=== PATIENT | female | born 1955 | race Caucasian/White ===

== ENCOUNTER → 2018-12-01 | Outpatient (REF) | payer MEDICARE, MEDICAID | LOC: M LAB LCGH 11:41 | PROVIDERS: ATTEND Obstetrics & Gynecology | DX: Z85.42 Personal history of malignant neoplasm of other parts of uterus (principal) ==

== ENCOUNTER → 2019-06-23 | Outpatient (REF) | LOC: M LAB LCGH 11:50 | PROVIDERS: ATTEND Surgery | DX: M86.171 Other acute osteomyelitis, right ankle and foot (principal) ==

== ENCOUNTER 2021-12-02 14:54 | Emergency (ER) | payer MEDICARE, MEDICAID ==
[~2021-12-02] VITALS: Ht 172.7 cm; Wt 112.3 kg
[2021-12-02 17:15] VITALS: BP 119/65
== END 2021-12-02 17:24 | disposition home or self-care (01) ==
LOC: EDBD 14:54 → M ED 14:54
DX: F43.20 Adjustment disorder, unspecified (principal); E11.9 Type 2 diabetes mellitus without complications; I10 Essential (primary) hypertension; F33.9 Major depressive disorder, recurrent, unspecified; F41.9 Anxiety disorder, unspecified; G47.33 Obstructive sleep apnea (adult) (pediatric); Z85.3 Personal history of malignant neoplasm of breast; Z92.21 Personal history of antineoplastic chemotherapy; Z92.3 Personal history of irradiation

== ENCOUNTER 2022-12-19 10:21 | Day surgery (SDC) | payer MEDICARE, MEDICAID ==
[~2022-12-19] VITALS: Ht 172.7 cm; Wt 89.8 kg
[~2022-12-19 10:21] MED LIST: ACETYLCHOLINE OPHTH SOLN 1% 2ML (MIOCHOL-E) As Ordered ONE; ARIP1TAB4 PO; BSS IRRIG/VANCO(10MG)/TOBRA(5MG)/EPINEPH(1:1000-0.5CC)500ML BAG-ORONLY IR ONE; BUPR-71 PO; CALC-190 PO; CEFUROXIME 1MG/0.1ML INTRACAMERAL INJ As Ordered ONE; CYCLOPENTOLATE 1% OPHTH SOLN 2ML BTL OD SCH; DONE1TAB64 PO; FERR325T81 PO; FIBE625T PO; HYDR12CA PO; INSUHUMDS SC; LIDOCAINE 1% SDV 5ML VIAL As Ordered ONE; LIDOCAINE 3.5 % 1ML OPHTH TOPICAL GEL OU ONE; LOSA100T46 PO; MELA3TAB24 SL; METF-838 PO; MULTTAB86 PO; NOVOINJ2 SC; OFLOXACIN 0.3 % (OCUFLOX) OPTH SOL 5ML OD ONE; PHENYLEPHRINE 10% OPHTH SOL 5ML OD PRN; PHENYLEPHRINE 2.5% OPHTH SOL 2ML OD SCH; ROPI0.5T3 PO; SIMV20TA22 PO; SOLI1INJ; TROPICAMIDE 1% OPHTH SOLN 15ML OD SCH; VILA40TA PO
[2022-12-19] MEDS ORDERED: POVIDONE-IODINE 5% OPHTH PREP SOL 30ML As Ordered ONE (11:40)
[2022-12-19] MEDS ORDERED: MIDAZOLAM INJ 2MG/2ML VIAL As Ordered ONE ×2 (12:14→12:26)
[2022-12-19] MEDS ORDERED: fentaNYL 100 MCG/2 ML INJECTION As Ordered ONE ×2 (12:14→12:26)
[2022-12-19 12:54] VITALS: BP 112/63
== END 2022-12-19 13:03 | disposition home or self-care (01) ==
LOC: M SDC 10:21
PROVIDERS: ATTEND Ophthalmology
DX: H25.11 Age-related nuclear cataract, right eye (principal); I10 Essential (primary) hypertension; E11.9 Type 2 diabetes mellitus without complications; Z85.3 Personal history of malignant neoplasm of breast; Z92.3 Personal history of irradiation; Z92.21 Personal history of antineoplastic chemotherapy; F03.90 Unspecified dementia, unspecified severity, without behavioral disturbance, psychotic disturbance, mood disturbance, and anxiety; Z88.5 Allergy status to narcotic agent; Z88.8 Allergy status to other drugs, medicaments and biological substances; Z79.4 Long term (current) use of insulin; Z79.899 Other long term (current) drug therapy
CPT/HCPCS: 66984; J0697; J2250; J3010; V2632